=== PATIENT | male | born 2000 | race African-American/Black ===

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

== ENCOUNTER 2023-02-09 18:16 | Emergency (ER) | payer BC, MEDICAID ==
[~2023-02-09] VITALS: Ht 185.4 cm; Wt 84.3 kg
[2023-02-09 18:30] VITALS: BP 126/86; PULSE 80; RESP 16; O2SAT 99
== END 2023-02-10 07:40 | disposition left against medical advice (07) ==
LOC: ER 18:16
DX: R05.9 Cough, unspecified (principal); J02.9 Acute pharyngitis, unspecified; R19.7 Diarrhea, unspecified; Z53.21 Procedure and treatment not carried out due to patient leaving prior to being seen by health care provider